=== PATIENT | male | born 1970 | race Caucasian/White ===

== ENCOUNTER 2023-11-13 15:08 | Emergency (ER) | payer OTHER, SELFPAY ==
[2023-11-13 15:14] VITALS: BP 133/80; PULSE 73; RESP 16; TEMP 36.6; O2SAT 96
--- NOTE | 2023-11-13 15:30 | DI.RAD_ITS ---
Exam(s) XR HAND LT COMPLETE EXAM: XR HAND LT COMPLETE CLINICAL HISTORY: lacs to distal middle and ring fingers r/o fx. TECHNIQUE: 2D digital imaging was performed of the left hand. Three views were obtained. AP, later al and oblique views were obtained. COMPARISON: No exams were available for comparison FINDINGS: BONES: There is an acute comminuted fracture involving the terminal tuft of the left middle finger. There are displaced fracture fragments present. No bony destructive lesion is seen. JOINTS: No dislocation present. Degenerative changes are seen in the hand particularly the interphala ngeal joints characterized by joint space narrowing and osteophytes. SOFT TISSUE: There is a laceration at the anterior aspect of the distal middle finger with soft tissu e swelling. IMPRESSION: 1. There is a comminuted displaced fracture involving the terminal tuft of the left middle finger. 2. Soft tissue laceration and soft tissue swelling of the middle finger. DATA REPOSITORY: RADIATION DOSE DELIVERED:
[2023-11-13] MEDS: Ibuprofen 600 MG TAB PO (15:39)
--- NOTE | 2023-11-13 15:40 | ED.GENADUL_ITS ---
Discharge Plan Disposition Patient Disposition: Home Condition: Stable Discharge Details Clinical Impression: Open fracture, Laceration of finger of left hand Primary Care Provider: Unknown,Unknown ED Provider: Flavia Mccoy Home Meds and New Rx's Prescriptions: New cephalexin 500 mg capsule 500 mg PO TID 3 Days Qty: 9 0RF Discharge Instructions Additional Instructions: Please call hand surgery first thing in the morning to schedule follow-up appointment on Saturday. I have prescribed for you prophylactic antibiotics. Please take the full course of Keflex as prescribed. Keep your middle finger dressing clean and dry. Do not remove this. It will be removed by orthopedics. For your ring finger wash gently with antibacterial soap and water and apply thin layer of bacitracin/triple antibiotic ointment. Keeping out for signs of infection such as redness, swelling, pus drainage, foul odor, generalized malaise/fevers, or worsening pain. Return to emergency care if you notice any of these signs. HPI General Date/Time Provider Initiated Documentation: 11/13/23 15:24 . HPI Narrative: Paul is a 53-year-old male who presents to the emergency department for evaluation of finger lacerations to distal middle and ring fingers of L hand. He reports he was cutting wood using a circular saw when he crashed and forgot to move his fingers on the way. He went to urgent care, received tetanus booster and was told to come to the emergency department for x-rays and lack repair. He is able to fully flex the fingers, sensation is intact and he has minimal pain. Bleeding is well-controlled with Coban and gauze on fingers. No previous injury to this hand. He is right-handed. He denies significant past medical history such as diabetes or immunocompromise. He does drink alcohol on a regular basis, says a couple drinks every couple of days. Denies history of GI bleeds or esophageal varices. No pain meds prior to arrival to the emergency department. Physical exam remarkable for approximately 2 cm curved jagged laceration to the palmar aspect of the left middle finger distal phalynx. Wound is irregularly shaped, stellate. Wound is gaping, no active bleeding at this time. Sensation intact. No nailbed damage. Approximately 1 cm laceration noted to left ring finger distal phalynx. Wound is gaping, no active bleeding at this time. Sensation intact. Lacerations do not cross the joint line. No other hand injury noted. Full painless range of motion to wrist. X-ray of ordered to evaluate for tuft fracture associated with lacerations sustained by circular saw; comminuted displaced fracture involving terminal tuft the left middle finger was noted. As this is a open fracture, call placed to orthopedics and Ancef given. Dr Fernando also in to evaluate patient and advise on wound closure. While in the emergency department Paul received ibuprofen for pain control. Lacerations repair after extensive irrigation with tap water and antisepsis using chlorhexidine spray. Wound was explored down to the base in a bloodless field, no foreign bodies visualized. Middle finger laceration edges were able to be loosely approximated using six 4-0 Ethilon sutures after digital block using 5 cc 1% lidocaine.. Wound was covered with Xeroform and roll gauze. Patient tolerated procedure well. Ring finger laceration was closed using three 4-0 Ethilon sutures and Steri- Strip, with good approximation of edges. Area was anesthetized with infiltration of 1% lidocaine locally, 2 cc used. As patient has oepn fracture, orthopedics consulted. Discussed case with Dr. Quiroz, orthopedic surgery. Reviewed patient presentation, physical exam, and x-ray. He recommends closure to loosely approximate edges using 4-0 sutures, as well as covering with Xeroform and roll gauze; dressing to remain in place until ortho f/u. Follow-up on Saturday recommended. Also recommended prophylaxis with Keflex 500 mg 3 times daily for 3 days. Reviewed discharge instructions with patient, including recommendation for hand follow-up. As he lives in [place], prefers to follow-up closer to home, likely at [facility]. Educated on wound care, abx use, and red flags indicate need for return to emergency care. Related Data Home Medications Medication Instructions Recorded Confirmed cephalexin 500 mg capsule 500 mg PO TID 3 days #9 caps 11/13/23 Previous Rx's Medication Instructions Recorded cephalexin 500 mg capsule 500 mg PO TID 3 days #9 caps 11/13/23 Allergies Allergy/AdvReac Type Severity Reaction Status Date / Time No Known Allergies Allergy Unverified 11/13/23 15:14 General Stated Complaint: Laceration STEVE: 3 Review of Systems Narrative: see HPI Exam Const General: cooperative, healthy appearing, comfortable, no acute distress, well developed and well groomed Nutritional Appearance: average body habitus Resp Effort & Inspection: normal respiratory effort and able to speak in complete sentences Extrem Right upper extremity: normal to inspection Left upper extremity: full ROM, normal capillary refill, no joint enlargement and hand Details: normal capillary refill, neuromotor exam normal, neurosensory exam normal, tendon exam normal and laceration 3rd digit palmar aspect distal Details: irregular, stellate, involving subcutaneous tissue, with motor nerve function intact and with sensation intact; no foreign body present, 4th digit palmar aspect distal Details: irregular and involving subcutaneous tissue; no foreign body present Hand/finger images: 2 1. location of laceration #1 2. location of laceration #2 Course Vital Signs Vital signs: Vital Signs Temperature 36.6 C 11/13/23 15:14 Pulse 73 11/13/23 15:14 Respiratory Rate 16 11/13/23 15:14 Blood Pressure 133/80 11/13/23 15:14 Pulse Oximetry 96 11/13/23 15:14 Temperature 36.6 C 11/13/23 15:14 Pulse 73 11/13/23 15:14 Respiratory Rate 16 11/13/23 15:14 Respiratory Effort Normal 11/13/23 15:17 Blood Pressure 133/80 11/13/23 15:14 Pulse Oximetry 96 11/13/23 15:14 Pain Level 2 11/13/23 15:14 Procedures Laceration Laceration 1: Site: hand (left, middle finger) Size (cm): 2 Description: stellate, irregular and clean Local anesthetic: Lidocaine 1% Amount of anesthesia used (mL): 5 Pre-repair: wound explored, irrigated extensively and deep structures intact Skin layer closed with: nylon Size (cm): 4-0 Number of sutures: 5 Technique: simple, interrupted Laceration 2: Site: hand (Left ring finger) Description: linear Depth: simple, single layer Local anesthetic: Lidocaine 1% Amount of anesthesia used (mL): 2 Pre-repair: wound explored and irrigated extensively Skin layer closed with: nylon Size (cm): 4-0 Number of sutures: 3 Technique: simple, interrupted Medical Decision Making Quality:SDOH Health Related Social Needs: 2 No Data to Display PFSH All Active Problems (Updated 11/13/23 @ 19:15 by Flavia Mak) Laceration of finger of left hand (Acute) Open fracture (Acute) Social History Smoking/Tobacco Use Status: Never Smoking risk assessment performed?: Yes Alcohol Intake: current Drug use: Never Housing: house Do you feel safe at home: Yes Do you feel safe in your relationship?: Yes
[2023-11-13] MEDS: ceFAZolin 2 GM/50 ML BAG IVPB (17:34)
[2023-11-13 19:23] VITALS: BP 148/85; PULSE 60; RESP 16; O2SAT 97
--- NOTE | 2023-11-18 11:58 | NUR.NOTE ---
Nursing Note: Accessed chart for SQSS investigation
== END 2023-11-13 19:23 | disposition home or self-care (01) ==
PROVIDERS: Emergency Provider Nurse Practitioner Family
DX: S61.215A Laceration without foreign body of left ring finger without damage to nail, initial encounter (principal); S61.213A Laceration without foreign body of left middle finger without damage to nail, initial encounter; S62.633A Displaced fracture of distal phalanx of left middle finger, initial encounter for closed fracture
CPT/HCPCS: 12002; 64450; 96365; 99284; 73130; 99283; J0690; J2003